=== PATIENT | male | born 1965 | race Caucasian/White ===

== ENCOUNTER 2018-11-11 22:08 | Emergency (ER) | payer BC ==
[~2018-11-11] VITALS: Ht 170.2 cm; Wt 87.5 kg
[2018-11-11 22:24] VITALS: Ht 170.2 cm; Wt 87.5 kg
[2018-11-11 23:43] VITALS: BP 140/99
== END 2018-11-11 23:43 | disposition home or self-care (01) ==
LOC: ED 22:08
DX: S93.114A Dislocation of interphalangeal joint of right lesser toe(s), initial encounter (principal); R03.0 Elevated blood-pressure reading, without diagnosis of hypertension; Z90.89 Acquired absence of other organs; W01.0XXA Fall on same level from slipping, tripping and stumbling without subsequent striking against object, initial encounter; Y93.89 Activity, other specified; Y92.34 Swimming pool (public) as the place of occurrence of the external cause; Y99.8 Other external cause status
CPT/HCPCS: J2001; Q0092